=== PATIENT | female | born 1955 ===

== ENCOUNTER → 2021-03-19 | Outpatient (CLI) | payer OTHER ==
[2021-03-19] MEDS: GADOTERATE 5 MMOL/10ML VIAL. IVP ONE ×2 (10:52→10:53)
--- NOTE | 2021-03-19 11:35 | RAD ---
EXAM: Brain MRI with and without contrast. HISTORY: Headaches. TECHNIQUE: Multiplanar, multisequence magnetic resonance imaging of the brain was performed prior to and following the administration of intravenous contrast. COMPARISON: None. FINDINGS: There is no restricted diffusion to suggest acute or subacute infarction. There is no susce ptibility effect to suggest hemorrhage. There is no mass effect or midline shift. There is no hydroce phalus. There are scattered focal areas of signal change throughout the cerebral white matter, likely due to chronic small vessel disease. The orbits are unremarkable. There are left greater than right maxillary sinus mucous retention cysts . There is also focal mucosal thickening or mucus retention cyst within the right aspect of the sphen oid sinus and minimal mucosal thickening involving the right frontal sinus. The mastoid air cells are clear. There are normal flow voids within the cerebral vessels. There is no suspicious calvarial les ion. There is no suspicious enhancing lesion. IMPRESSION: 1. No acute intracranial finding. 2. Scattered areas of signal change throughout the cerebral white matter, likely due to chronic small vessel disease. This is slightly advanced for patient age. Electronically signed by: Susanna Wagner MD (03/19/2021 11:33 AM) [id number]
== END ==
LOC: MRI 08:52
PROVIDERS: ATTEND Family Medicine
DX: R51.9 Headache, unspecified (principal)
CPT/HCPCS: 70553; A9575